=== PATIENT | male | born 1975 | race Caucasian/White ===

== ENCOUNTER → 2017-05-22 08:51 | Outpatient (CLI) | payer SELFPAY | PROVIDERS: Visit Provider Nurse Practitioner Family | DX: Z02.4 Encounter for examination for driving license (principal) ==

== ENCOUNTER 2017-06-22 12:25 | Emergency (ER) | payer OTHER, SELFPAY ==
--- NOTE | 2017-06-22 12:50 | XR_ITS ---
XR sacrum coccyx min 2V CLINICAL INDICATION: Pain following injury ITS.REASON: FELL 2 WEEKS AGO ORDERING PHYSICIAN: Lisy Humphrey PATIENT AGE: 41 years COMPARISON: 10/17/2016 FINDINGS: No fracture or dislocation is evident. There is straightening of the sacrococcygeal curvature similar to the previous exam nonspecific. IMPRESSION: No acute finding with no significant change
[2017-06-22 12:56] VITALS: BP 150/77; PULSE 118; RESP 20; TEMP 37.1; O2SAT 100; BMI 26.8
--- NOTE | 2017-06-22 13:02 | HMH.EDUTC ---
[facility] [place] Disposition Clinical Impression: Pain, coccyx Disposition: Home, Self-Care Condition on Discharge: Good Instructions: DI for Coccyx Fracture Additional Instructions: * weight bearing and movement as tolerated * Use donut pillow to relieve pressure. Continue stool softners and fiber to help soften stool * Rest * ice 15-20 mins 3-4 times a day and if this doesn't feel better, try heat * naproxen every 12 hours as needed for pain and inflammation. If you need something more, you can take tylenol every 4 hours as needed as long as your primary care provider has told you it is ok to take both. * No additional anti-inflammatories like motrin, aleve, advil with the above amount of naproxen. You CAN still take Tylenol every 4 hours as needed if you need something more for pain. Prescriptions: Naproxen 500 mg PO BID PRN #28 tab PRN Reason: Moderate To Severe Pain Referrals: Higinio Basilio MD [Staff Physician] - (Call today and schedule follow up appt to discuss final xray report and rather or not naproxen helping. Seek treatment immediately for new or worsening symptoms.) Time of Disposition: 13:58 Medical Decision Making Vital Signs: 06/22/17 12:56 06/22/17 14:03 Temperature 98.7 F 98.2 F Temperature Source Temporal Artery Scan Pulse Rate 87 Pulse Rate [Right Brachial] 118 H Respiratory Rate 20 20 Blood Pressure 137/78 Blood Pressure [Right Arm] 150/77 Blood Pressure Mean [Right Arm] 101 Blood Pressure Source [Right Arm] Automatic Cuff Blood Pressure Position [Right Arm] Sitting 02 Sat by Pulse Oximetry 100 Oxygen Delivery Method Room Air - Radiology Data #1 Image(s): Other (coccyx/sacrum) Image Reviewed: Yes I reviewed the patient's radiology image w/the ED provider Preliminary Findings: Normal/NAD Rvwd w/ Dr. Almazan, unchanged from 2017, no acute findings - Rah Inquiry Pt receiving controlled substance: No [facility] [place] HPI - General Stated complaint: AO [id number] TAILBONE HURTS Time Seen by Provider: 06/22/17 13:02 Mode of Arrival: Ambulatory Source of Information: Patient Limitations: No Limitations - History of Present Illness Provider Complaint: c/o tailbone pain since falling on steps 2-3 days ago. Hx of similiar fall 1.5 years ago. Thinks he broke his coccyx at that time. Was told it would heal with time. Knows there is very little to be done today but wants to rule out fracture again. Has been using donut pillow as well as ibuprofen but little relief so fears fractured. Stool softeners and fiber supplements helped in the past so started those immediately so BMs would not be painful. Home meds xanax, ritalin, seroquel and lithium - Related Data Previous Rx's Medication Instructions Recorded Naproxen 500 mg PO BID PRN #28 tab 06/22/17 Allergies Allergy/AdvReac Type Severity Reaction Status Date / Time No Known Allergies Allergy Unverified 04/28/17 14:40 [facility] History I have reviewed the patient's past medical history: Yes Medical History: Reports:: Anxiety Other Medical History: Reports: Other (panic attacks, ADD, insomnia, mood disorder) Other Surgeries: Yes: Other (deviated septum) ROS Obtained: Yes Systems reviewed as appropriate & no additional complaints - Constitutional Constitutional: Denies body ache, Denies chills, Denies fever(s) - Cardiovascular Cardiovascular: Denies chest pain - Respiratory Respiratory: No cough, No dyspnea - Gastrointestinal Gastrointestingal: Denies: abdominal pain, nausea, vomiting - Genitourinary Male Genitourinary: Denies difficulty urinating, Denies testicular pain - Musculoskeletal Musculoskeletal: Denies abnormal gait, Denies back pain, Denies deformity, Denies limited range of motion - Integumentary/Breasts Skin/Breast: Denies changing lesions, Denies lesions, Denies wounds - Neurologic Neurologic: Denies tingling/numbness/burning sensations Physical Exam - General General appearance: alert, other (
[2017-06-22 14:03] VITALS: BP 137/78; PULSE 87; RESP 20; TEMP 36.8; O2SAT 98
== END 2017-06-22 14:03 | disposition home or self-care (01) ==
PROVIDERS: Emergency Provider Nurse Practitioner Family; Family Provider Family Medicine
DX: S30.0XXA Contusion of lower back and pelvis, initial encounter (principal); W10.9XXA Fall (on) (from) unspecified stairs and steps, initial encounter; F41.0 Panic disorder [episodic paroxysmal anxiety]; G47.00 Insomnia, unspecified; F98.8 Other specified behavioral and emotional disorders with onset usually occurring in childhood and adolescence
CPT/HCPCS: 72220; 99202

== ENCOUNTER → 2017-06-26 07:42 | Outpatient (CLI) | payer OTHER, SELFPAY ==
--- NOTE | 2017-06-26 07:58 | XR_ITS ---
EXAM: XR cervical spine min 6V HISTORY: ITS.REASON: neck pain ORDERING PHYSICIAN: Lester Flores PATIENT AGE: 41 years COMPARISON: None FINDINGS: Normal alignment. No fracture or dislocation. No lytic or blastic change. No significant degenerative change. The disc spaces are preserved. 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 There is mild foraminal narrowing at C3-C4 foramen bilaterally. No fracture or dislocation. No evidence of cervical rib or bony destructive process. IMPRESSION: 1. No acute finding. 2. Mild bilateral foraminal narrowing at C3-C4. 3. klippel-feil deformity
[2017-06-26 08:38] LABS: White Blood Count 9.5 K/mm3 (4.8-10.8)
[2017-06-26 08:39] LABS: Hematocrit 46.8 % (42.0-52.0); Mean Corpuscular HGB Conc 34.1 g/dL (31.8-35.4); Mean Corpuscular Hemoglobin 29.9 pg (27.0-31.2); Mean Corpuscular Volume 87.6 fl (80-94); Mean Platelet Volume 7.9 fl (7.4-10.4); Platelet Count 240 K/mm3 (142-424); Red Blood Count 5.34 M/mm3 (4.60-6.20); Red Cell Distribution Width 12.5 % (11.5-17.5)
[2017-06-26 08:40] LABS: Basophils % 0.5 % (0.1-2.0); Eosinophils # 0.1 K/mm3 (0.0-0.4); Eosinophils % 0.8 % (0.1-12.0); Lymphocytes # 2.6 K/mm3 (0.7-4.5); Lymphocytes % 28.8 K/mm3 (10-50); Monocytes # 0.5 K/mm3 (0.1-1.0); Monocytes % 5.1 % (1.7-9.3); Neutrophils # 6.2 K/mm3 (1.8-7.8); Neutrophils % 64.8 % (37.0-80.0)
[2017-06-26 08:57] LABS: Alanine Aminotransferase 36 U/L (12-78); Albumin Level 4.7 gm/dL (3.4-5.0); Albumin/Globulin Ratio 1.7 (1.1-1.8); Alkaline Phosphatase 68 U/L (46-116); Anion Gap 12.3 mEq/L (5-15); Aspartate Amino Transferase 22 U/L (15-37); Bilirubin,Total 0.7 mg/dL (0.2-1.0); Blood Urea Nitrogen 16 mg/dL (7-18); Calcium 9.4 mg/dL (8.5-10.1); Carbon Dioxide 29 mmol/L (21.0-32.0); Chloride 104 mmol/L (98-107); Creatinine,Serum 1.06 mg/dL (0.70-1.30); Estimated Glomerular Filt Rate 78 ml/min (>60); Free T4 (Free Thyroxine) 1.02 ng/dl (0.76-1.46); GFR (African American) 94 ML/MIN (>60); Globulin 2.7 gm/dl (1.3-3.2); Glucose 94 mg/dL (74-106); Potassium 4.3 mmoL/L (3.5-5.1); Sodium 141 mmol/L (136-145); Thyroid Stimulating Hormone 0.63 uIU/ml (0.358-3.740); Total Protein,Serum 7.4 gm/dL (6.4-8.2)
[2017-06-27 19:07] LABS: Vitamin B12 398 pg/mL (232-1245)
[2017-06-28 02:13] LABS: Testosterone,Free 9.2 pg/mL (8.7-25.1)
[2017-06-29 20:10] LABS: 1,25-Dihydroxy, Vitamin D-2 <10 pg/mL (.)
[2017-07-01 06:34] LABS: 1,25 Dihydroxy Vitamin D 48 pg/mL (.); 1,25-Dihydroxy, Vitamin D-3 48 pg/mL (.)
[2017-07-02 11:00] LABS: Testosterone, Total, LC/MS 599.6 ng/dL (264.0-916.0)
== END ==
PROVIDERS: PCP Nurse Practitioner Family; Visit Provider Nurse Practitioner Family
DX: Z76.89 Persons encountering health services in other specified circumstances (principal); F52.21 Male erectile disorder; R53.83 Other fatigue; M54.2 Cervicalgia
CPT/HCPCS: 36415; 72052; 80053; 82607; 82652; 84402; 84439; 84443; 85025

== ENCOUNTER 2020-03-08 14:50 | Outpatient (RCR) | payer OTHER, SELFPAY ==
--- NOTE | 2020-03-08 16:04 | HMH.PTOPEV ---
PT Outpatient Evaluation Rehab PT Outpatient Evaluation Start: 03/08/20 15:49 Freq: Status: Active Protocol: Document 03/08/20 15:49 ARLENE (Rec: 03/08/20 16:04 PHORNE [id number]) Electronically Signed By Olegario Michael, PT 03/08/20 15:49 Outpatient Therapy Subjective History Subjective History Pt is 44 yowm who presents with c/o chronic pain in the low back, stiffness in the neck, and pain in the R shld worse with movement. He reports pain in the back is worse with standing and twisting. He also reports the neck stiffness is worse with turning to the R side. He reports his R shld is sore, but worse with certain activity like throwing a ball. He reports PMH os baseline tachycardia. Chief Complaint Pain Symptom Type Ache,Sharp,Stabbing,Shooting Symptoms Relieved By Rest/Positioning Symptoms Aggravated By Standing,Walking Prior Functional Limitations None Current Functional Limitations Standing,Recreation Activity, Walking Symptom Description Constant but Variable Level of pain today (0-10) 1 Pain scale - at its worst (0-10) 7 Cervical Eval Passive Joint Mobility Cervical PIVM Dec: R C5/6 L C5/6 R C6/7 L C6/7 WNL: R OA L OA R AA L AA R C2/3 L C2/3 R C3/4 L C3/4 R C4/5 L C4/5 AROM Cervical Spine Extension Active Range of 0-40 Motion (degrees) Cervical Spine Flexion Active Range of 0-60 Motion (degrees) Cervical Spine Right Lateral Flexion 0-30 Active Range of Motion (degrees) Cervical Spine Left Lateral Flexion 0-20 Active Range of Motion (degrees) Cervical Spine Right Rotation Active 0-45 Range of Motion (degrees) Cervical Spine Left Rotation Active 0-70 Range of Motion (degrees) MMT Bilateral Deltoid (C5) 5 Normal Biceps Brachii Strength Grade 5 Normal Wrist Extension Strength Grade
== END 2020-03-08 14:55 | disposition home or self-care (01) ==
LOC: PT 14:50
PROVIDERS: PCP Family Medicine; Visit Provider Family Medicine
DX: M47.816 Spondylosis without myelopathy or radiculopathy, lumbar region (principal); M54.5 Low back pain; M54.2 Cervicalgia; M75.101 Unspecified rotator cuff tear or rupture of right shoulder, not specified as traumatic
CPT/HCPCS: 97163

== ENCOUNTER → 2020-03-21 09:16 | Outpatient (CLI) | payer OTHER, SELFPAY ==
--- NOTE | 2020-03-21 09:21 | XR_ITS ---
PROCEDURE: XR ANKLE LT MIN 3V CLINICAL INDICATION: LT ANKLE INJURY Posttraumatic pain COMPARISON: No exams were available for comparison FINDINGS: Bony hypertrophy noted at the medial malleolar region and lateral malleolar region with a small calcific density at the tip of the lateral malleolus which could be due to an avulsion fracture. There is mild soft tissue swelling laterally. IMPRESSION: Avulsion fracture at the tip of the lateral malleolus. Dictated by: Chandler Cruz MD 03/21/2020 16:04 Chandler Cruz MD in [place] 03/21/2020 16:04
== END ==
PROVIDERS: PCP Family Medicine; Visit Provider Family Medicine
DX: S93.492A Sprain of other ligament of left ankle, initial encounter (principal)
CPT/HCPCS: 73610

== ENCOUNTER 2020-03-28 10:24 | Emergency (ER) | payer OTHER, SELFPAY ==
[2020-03-28 10:43] VITALS: BP 198/106; PULSE 132; RESP 14; TEMP 36.9; O2SAT 98; BMI 27.8
--- NOTE | 2020-03-28 10:50 | HMH.EDUTC ---
[facility] [place] Impression: Exposure to COVID-19 virus, Encounter for laboratory testing for COVID-19 virus Disposition: Home, Self-Care Condition on Discharge: Good Instructions: Preventing the Spread of Coronavirus Discharge Instructions Additional Instructions: *Monitor Temp, Over the counter Motrin or Tylenol as directed/as needed Tylenol every 4 hours and Motrin every 6 hours (as long as your family doctor has told you that you can take it) for fever or pain. and straight to ER if unable to lower temp less than 101.0 after medication given *Warm salt water gargles may help to soothe the throat *Throat Lozenges *Warm fluids like tea with honey may help to soothe the throat *Sleep elevated *Humidifier/Vaporizer Follow up IMMEDIATELY for new or worsening symptoms or no Noticeable improvement over the next 48-72 hours. 911 for difficulty breathing or swallowing You was tested for today for COVID19 your test result should be back in the next 24-48 hours, you may call to the [facility] tomorrow to see if your test results are back and the result [phone] You was given a handout with instructions for Self Quarantine and Self isolation for while you wait on test results and what to do if they are positive If you are positive the Health Dept will be contacting you also Referrals: Cholo Muniz MD [Primary Care Provider] - Forms: Work/School Release Time of Disposition: 11:09 Medical Decision Making - Rah Inquiry Pt receiving controlled substance: No Rah was queried for this patient: No Vital Signs: 03/28/20 10:43 03/28/20 11:14 Temperature 98.5 F 98.5 F Temperature Source Oral Oral Pulse Rate 110 H Pulse Rate [Radial] 132 H Respiratory Rate 14 14 Blood Pressure 140/74 Blood Pressure [Right Arm] 198/106 H Blood Pressure Mean [Right Arm] 136 Blood Pressure Source Automatic Cuff Blood Pressure Source [Right Arm] Automatic Cuff Blood Pressure Position Sitting Blood Pressure Position [Right Arm] Sitting 02 Sat by Pulse Oximetry 98 Oxygen Delivery Method Room Air Room Air Orders (Tests/Meds): ORDERS Category Date Time Status Covid-19 Nasal PCR ([facility]) Routine Lab 03/28/20 10:29 Received Medical Decision Narrative: Patient advised no longer taking [place] [facility] [place] - General Stated complaint: covid exposure, symptomatic Time Seen by Provider: 03/28/20 10:50 Mode of Arrival: Ambulatory Source of Information: Patient Limitations: No Limitations Description of Symptoms (Recalled from Triage Doc. by RN): 36-48 HOURS TROUBLE CONCENTRATION, TEMP HEENT Symptoms (Recalled from RN notes): No Resp Symptoms (Recalled from RN notes): No Skin Symptoms (Recalled from RN notes): No MS Symptoms (Recalled from RN notes): No Functional Status (Recalled from RN notes): WNL - History of Present Illness Provider Complaint: Patient states that he has been around several people that has tested positive for COVID States that he has been helping his elderly father and started having fever, body aches and chills State that he was worried that he may have COVID States that he has a history of anxiety and has been feeling really anxious about getting tested States that his anxiety is better now after he got the test - Related Data Home Medications Medication Instructions Recorded Confirmed alprazolam 1 mg tablet 1 mg PO BID tab 06/25/17 11/27/17 lithium carbonate 150 mg capsule 150 mg PO DAILY cap 06/25/17 11/27/17 methylphenidate HCl 20 mg tablet 20 mg PO BID 06/25/17 11/27/17 metoprolol succinate 25 mg 25 mg PO DAILY tab 06/25/17 11/27/17 tablet,extended release 24 hr quetiapine 25 mg tablet 25 mg PO DAILY tab 06/25/17 11/27/17 Cyclobenzaprine HCl [Flexeril 10mg 5 mg PO NEEDED PRN 11/27/17 11/27/17 tablet] alprazolam 3 mg tablet,extended 2 mg PO BID tab 11/27/17 11/27/17 release 24 hr Previous Rx's Medication Instructions Recorded Naproxen 500 mg PO BID PRN #28
[2020-03-28 11:14] VITALS: BP 140/74; PULSE 110; RESP 14; TEMP 36.9; O2SAT 98
== END 2020-03-28 11:15 | disposition home or self-care (01) ==
PROVIDERS: Emergency Provider Nurse Practitioner; PCP Family Medicine
DX: Z20.828 Contact with and (suspected) exposure to other viral communicable diseases (principal); F41.0 Panic disorder [episodic paroxysmal anxiety]; Z79.899 Other long term (current) drug therapy
CPT/HCPCS: 99201; U0003

== ENCOUNTER → 2020-04-23 09:43 | Outpatient (CLI) | payer OTHER, SELFPAY | PROVIDERS: PCP Family Medicine; Visit Provider Specialist | DX: R41.3 Other amnesia (principal) ==

== ENCOUNTER → 2020-04-26 08:06 | Outpatient (CLI) | payer OTHER, SELFPAY ==
[2020-04-26 08:38] LABS: Basophils # 0.1 K/mm3 (0-0.2); Basophils % 0.8 % (0.1-2.0); Eosinophils # 0.2 K/mm3 (0.0-0.4); Eosinophils % 2.5 % (0.1-12.0); Hematocrit 52.6 % (42.0-52.0); Hemoglobin 17.8 g/dL (14.1-18.0); Lymphocytes % 40.3 % (10-50); Mean Corpuscular HGB Conc 33.9 g/dL (31.8-35.4); Mean Corpuscular Hemoglobin 30.8 pg (27.0-31.2); Mean Platelet Volume 7.9 fl (7.4-10.4); Monocytes # 0.4 K/mm3 (0.1-1.0); Monocytes % 5.9 % (1.7-9.3); Neutrophils # 3.8 K/mm3 (1.8-7.8); Neutrophils % 50.4 % (37.0-80.0); Platelet Count 226 K/mm3 (142-424); Red Blood Count 5.78 M/mm3 (4.60-6.20); Red Cell Distribution Width 13.1 % (11.5-17.5); White Blood Count 7.5 K/mm3 (4.8-10.8)
[2020-04-26 09:25] LABS: Alanine Aminotransferase 48 U/L (12-78); Albumin/Globulin Ratio 1.9 (1.1-1.8); Alkaline Phosphatase 73 U/L (38-126); Anion Gap 13.5 mEq/L (5-15); Aspartate Amino Transferase 32 U/L (17-59); Bilirubin,Total 0.8 mg/dl (0.2-1.3); Blood Urea Nitrogen 13 mg/dl (9-20); Calcium 9.9 mg/dl (8.4-10.2); Carbon Dioxide 30 mmol/L (22.0-30.0); Chloride 103 mmol/L (98-107); Estimated Glomerular Filt Rate 73 ml/min (>60); GFR (African American) 89 ML/MIN (>60); Globulin 2.7 g/dL (1.3-3.2); Glucose 93 mg/dl (74-100); Potassium 3.5 mmoL/L (3.5-5.1); Sodium 143 mmol/L (136-145); Total Protein,Serum 7.7 g/dl (6.3-8.2)
[2020-04-26 09:27] LABS: Erythrocyte Sedimentation Rate 4 mm/hr (0-15)
[2020-04-26 10:31] LABS: Vitamin B12 279 pg/mL (239-931)
[2020-04-26 10:39] LABS: Folate 6.79 ng/mL
[2020-04-27 15:50] LABS: Rapid Plasma Reagin Ab Titer Non Reactive (NonRea<1:1)
[2020-05-09 14:29] LABS: Antinuclear Antibodies (ANA) Negative
== END ==
LOC: LAB 08:06 → SL 08:26
PROVIDERS: PCP Family Medicine; Visit Provider Specialist
DX: G47.33 Obstructive sleep apnea (adult) (pediatric) (principal); G93.40 Encephalopathy, unspecified; R41.3 Other amnesia
CPT/HCPCS: 36415; 80053; 82607; 82746; 84443; 85025; 85651; 86038; 86592; G0399

== ENCOUNTER → 2020-05-22 14:19 | Outpatient (CLI) | payer OTHER, SELFPAY ==
--- NOTE | 2020-05-22 14:33 | CT_ITS ---
PROCEDURE: CT HEAD/BRAIN WO CON CLINICAL INDICATION: eval, questionable history of seizures, ;memory lo Memory loss, seizures COMPARISON: No exams were available for comparison TECHNIQUE: Axial images obtained. All CT scans at the facility use one or more dose reduction, viz: automated exposure control, ma/kV adjustment per patient size (including targeted exams where dose is matched to indication, i.e. head), or iterative reconstruction technique. FINDINGS: No midline shift, mass effect, intracranial hemorrhage, hydrocephalus, or extra-axial fluid collection is evident. The calvarium has an unremarkable appearance. No mastoid effusion. No sinus air-fluid level. IMPRESSION: No acute intracranial finding Dictated by: Chandler Cruz MD 05/22/2020 20:25 Chandler Cruz MD in [place] 05/22/2020 20:25
== END ==
PROVIDERS: PCP Family Medicine; Visit Provider Specialist
DX: G93.40 Encephalopathy, unspecified (principal); R41.3 Other amnesia
CPT/HCPCS: 70450

== ENCOUNTER → 2020-05-22 14:58 | Outpatient (CLI) | payer OTHER, SELFPAY ==
[2020-05-22 15:18] LABS: Basophils # 0.1 K/mm3 (0-0.2); Eosinophils # 0.2 K/mm3 (0.0-0.4); Eosinophils % 2.1 % (0.1-12.0); Hematocrit 50.7 % (42.0-52.0); Hemoglobin 17.4 g/dL (14.1-18.0); Lymphocytes # 2.6 K/mm3 (0.7-4.5); Lymphocytes % 31.4 % (10-50); Mean Corpuscular HGB Conc 34.2 g/dL (31.8-35.4); Mean Corpuscular Hemoglobin 31.2 pg (27.0-31.2); Mean Platelet Volume 8.2 fl (7.4-10.4); Monocytes # 0.5 K/mm3 (0.1-1.0); Monocytes % 5.7 % (1.7-9.3); Neutrophils # 4.9 K/mm3 (1.8-7.8); Neutrophils % 59.8 % (37.0-80.0); Platelet Count 245 K/mm3 (142-424); Red Blood Count 5.58 M/mm3 (4.60-6.20); Red Cell Distribution Width 13.2 % (11.5-17.5); White Blood Count 8.2 K/mm3 (4.8-10.8)
== END ==
PROVIDERS: Visit Provider Specialist
DX: R79.89 Other specified abnormal findings of blood chemistry (principal)
CPT/HCPCS: 36415; 85025

== ENCOUNTER → 2021-03-25 08:43 | Outpatient (CLI) | payer OTHER, SELFPAY ==
[2021-03-25 09:40] LABS: Basophils # 0.1 K/mm3 (0-0.2); Basophils % 2.2 % (0.1-2.0); Eosinophils # 0.1 K/mm3 (0.0-0.4); Eosinophils % 2.3 % (0.1-12.0); Hematocrit 48.8 % (42.0-52.0); Hemoglobin 17.2 g/dL (14.1-18.0); Lymphocytes # 2.1 K/mm3 (0.7-4.5); Lymphocytes % 35.6 % (10-50); Mean Corpuscular HGB Conc 35.3 g/dL (31.8-35.4); Mean Corpuscular Hemoglobin 30.8 pg (27.0-31.2); Mean Corpuscular Volume 87.1 fl (80-94); Mean Platelet Volume 8.5 fl (7.4-10.4); Monocytes # 0.4 K/mm3 (0.1-1.0); Monocytes % 5.9 % (1.7-9.3); Neutrophils # 3.3 K/mm3 (1.8-7.8); Platelet Count 259 K/mm3 (142-424); Red Cell Distribution Width 12.9 % (11.5-17.5)
[2021-03-25 10:26] LABS: Alanine Aminotransferase 80 U/L (12-78); Albumin Level 4.3 g/dl (3.5-5.0); Albumin/Globulin Ratio 1.7 (1.1-1.8); Alkaline Phosphatase 72 U/L (38-126); Anion Gap 9.5 mEq/L (5-15); Aspartate Amino Transferase 51 U/L (17-59); Bilirubin,Total 0.8 mg/dl (0.2-1.3); Blood Urea Nitrogen 11 mg/dl (9-20); Calcium 9.4 mg/dl (8.4-10.2); Carbon Dioxide 25 mmol/L (22.0-30.0); Chloride 107 mmol/L (98-107); Chol/HDL Ratio 6.5 (1-3.5); Cholesterol 227 mg/dl (140-200); Estimated Glomerular Filt Rate 92 ml/min (>60); GFR (African American) 111 ML/MIN (>60); Globulin 2.5 g/dL (1.3-3.2); Glucose 99 mg/dl (74-100); HDL Cholesterol 35 mg/dl (40-60); Potassium 4.5 mmoL/L (3.5-5.1); Sodium 137 mmol/L (136-145); Total Protein,Serum 6.8 g/dl (6.3-8.2); Triglycerides 252 mg/dl (30-150); VLDL Cholesterol 50 mg/dL (0-40)
[2021-03-25 12:38] LABS: Hemoglobin A1C 5.4 % (4.0-6.0)
[2021-03-25 13:40] LABS: Folate 6.87 ng/mL; Vitamin B12 322 pg/mL (239-931)
[2021-03-25 13:41] LABS: Direct LDL Cholesterol 154.23 mg/dL (100-129); Thyroid Stimulating Hormone 2.13 uIU/mL (0.465-4.68)
[2021-03-25 14:23] LABS: Ferritin 214 ng/ml (17.9-464)
[2021-03-27 22:12] LABS: Testosterone, Total, LC/MS 501.5 ng/dL (264.0-916.0); Testosterone,Free 11.8 pg/mL (6.8-21.5)
[2021-03-30 13:29] LABS: Magnesium,RBC 5.8 mg/dL (4.2-6.8)
== END ==
PROVIDERS: Visit Provider Psychiatry & Neurology Psychiatry
DX: F41.1 Generalized anxiety disorder (principal); F90.0 Attention-deficit hyperactivity disorder, predominantly inattentive type; F33.8 Other recurrent depressive disorders; E55.9 Vitamin D deficiency, unspecified
CPT/HCPCS: 36415; 80053; 80061; 82306; 82607; 82728; 82746; 83036; 83735; 84402; 84403; 84443; 85025

== ENCOUNTER 2021-05-12 09:21 | Emergency (ER) | payer OTHER, SELFPAY ==
[2021-05-12 09:34] VITALS: BP 132/91; PULSE 125; RESP 18; TEMP 36.6; O2SAT 98; BMI 29.9
[2021-05-12 09:41] LABS: UTC Influenza A Antigen Negative (Negative)
[2021-05-12 09:42] LABS: UTC Influenza B Antigen Negative (Negative)
[2021-05-12 10:07] VITALS: BP 132/91; PULSE 125; RESP 18; TEMP 36.6
--- NOTE | 2021-05-12 10:22 | HMH.EDUTC ---
[facility] [place] Clinical Impression: Strep throat Disposition: Home, Self-Care Condition on Discharge: Good Instructions: Strep Throat, DI for Strep Throat Additional Instructions: Drink plenty of fluids. Take tylenol or ibuprofen for pain or fever. Take the medications as directed. Follow up with your regular doctor. GO TO THE ER FOR ANY WORSENING SYMPTOMS Throw your tooth brush away and get a new one. Prescriptions: Ondansetron [Zofran 4mg ODT] 4 mg PO Q8HP PRN #20 tab PRN Reason: Nausea Transmission Status: Received by [facility] Amoxicillin/Potassium Clav [Augmentin 875-125 Tablet] 1 tab PO Q12H 10 Days #20 tab Transmission Status: Received by [facility] predniSONE [Deltasone 10mg tablet] 10 mg PO BID 3 Days #6 tab Transmission Status: Received by [facility] Referrals: Cholo Muniz MD [Primary Care Provider] - Forms: Work/School Release Time of Disposition: 10:45 Medical Decision Making - Medical Records Medical records reviewed: No: I reviewed the patient's medical records. - Rah Inquiry Pt receiving controlled substance: No Vital Signs: 05/12/21 09:34 05/12/21 10:07 Temperature 97.8 F 97.8 F Temperature Source Oral Pulse Rate 125 H Pulse Rate [Left] 125 H Respiratory Rate 18 18 Blood Pressure 132/91 H Blood Pressure [Right Arm] 132/91 H Blood Pressure Mean [Right Arm] 104 02 Sat by Pulse Oximetry 98 - Lab Data Lab results reviewed: Yes: I reviewed the patient's lab results. Lab Results 05/12/21 09:36: Influenza Type A Ag Negative, Influenza Type B Ag Negative 05/12/21 10:45: Strep Scn Rapid [facility] Positive [facility] [place] - General Stated complaint: cough, h/a Time Seen by Provider: 05/12/21 10:22 Mode of Arrival: Ambulatory Source of Information: Patient Limitations: No Limitations Description of Symptoms (Recalled from Triage Doc. by RN): pt c/o a cough, SANTOS, and body aches x3 days. HEENT Symptoms (Recalled from RN notes): Yes Resp Symptoms (Recalled from RN notes): Yes Skin Symptoms (Recalled from RN notes): No MS Symptoms (Recalled from RN notes): No Functional Status (Recalled from RN notes): wnl - History of Present Illness Provider Complaint: He c/o feeling bad, chilling, having a dry cough, and running a low grade fever for the past 2 days. He denies any shortness of breath or chest pain. - Related Data Home Medications Medication Instructions Recorded Confirmed methylphenidate HCl 20 mg tablet 20 mg PO BID 06/25/17 05/31/20 quetiapine 25 mg tablet 25 mg PO DAILY tab 06/25/17 05/31/20 Cyclobenzaprine HCl [Flexeril 10mg 5 mg PO NEEDED PRN 11/27/17 05/31/20 tablet] alprazolam 3 mg tablet,extended 2 mg PO BID tab 11/27/17 05/31/20 release 24 hr propranolol 60 mg capsule,24 60 mg PO HS 04/02/20 05/31/20 hr,extended release Previous Rx's Medication Instructions Recorded Amoxicillin/Potassium Clav 1 tab PO Q12H 10 Days #20 tab 05/12/21 [Augmentin 875-125 Tablet] Ondansetron [Zofran 4mg ODT] 4 mg PO Q8HP PRN #20 tab 05/12/21 predniSONE [Deltasone 10mg tablet] 10 mg PO BID 3 Days #6 tab 05/12/21 Allergies Allergy/AdvReac Type Severity Reaction Status Date / Time No Known Allergies Allergy Verified 05/31/20 13:01 - Worker's Comp Is this a Worker's Comp case?: No [facility] History - Hepatitis A Screen Drug use history?: No High risk sexual behaviors?: No History of sexually transmitted infection?: No Currently employed?: No Childcare worker?: No Do you have indoor plumbing?: Yes Do you have electricity?: Yes Attestation statement:: This patient has been screened for Hepatitis A risk factors. I have reviewed the patient's past medical history: Yes Medical History: Reports:: Anxiety, Depression, Hypertension, Palpitations, Seizures Denies:: Cancer, Diabetes Mellitus Type 1, Diabetes Mellitus Type 2, Internal Pacemaker, MRSA Other Medical History: Reports: Arthr
[2021-05-12 10:45] LABS: UTC Strep Screen (Rapid) Positive (Negative)
== END 2021-05-12 10:57 | disposition home or self-care (01) ==
PROVIDERS: Emergency Provider Nurse Practitioner Family; PCP Family Medicine
DX: U07.1 COVID-19 (principal); J02.0 Streptococcal pharyngitis; F41.8 Other specified anxiety disorders; I10 Essential (primary) hypertension
CPT/HCPCS: 87804; 87880; 99203; C9803; G0463; U0003; U0005